=== PATIENT | male | born 1965 | race Caucasian/White ===

== ENCOUNTER 2017-03-05 13:28 | Emergency (ER) | payer MEDICAID ==
[2017-03-05 13:38] VITALS: BP 160/100
--- NOTE | 2017-03-05 13:58 | ED Physician Documentation ---
PD HPI HEENT - Stated complaint Stated Complaint: MOUTH PX - Chief complaint Chief Complaint: Heent - History obtained from History obtained from: Patient - History of Present Illness Timing - onset: Other (Worsening pain from a left maxillary tooth with facial swelling for the last few days, Aleve helps somewhat. No fevers. He also needs a refill on his blood pressure medications. He has an appointment with a dentist in about a week and a half.) Review of Systems Constitutional: denies: Fever, Chills Nose: denies: Rhinorrhea / runny nose, Congestion Cardiac: denies: Chest pain / pressure, Palpitations Respiratory: denies: Dyspnea, Cough GI: denies: Abdominal Pain, Nausea, Vomiting PD PAST MEDICAL HISTORY - Past Medical History Cardiovascular: Hypertension - Past Surgical History Past Surgical History: No - Present Medications Home Medications: Ambulatory Orders Medication Instructions Recorded Confirmed hydroCHLOROthiazide 25 mg PO DAILY #30 tablet 11/15/15 03/05/17 [Hydrochlorothiazide] Atenolol 25 mg PO DAILY #30 tablet 11/20/15 03/05/17 Atenolol 25 mg PO DAILY #30 tablet 03/05/17 Clindamycin [Cleocin] 300 mg PO Q6H 10 Days capsule 03/05/17 HYDROcod/ACETAM 5/325 [[place] 5/325] 1 - 2 ea PO Q6H PRN #15 tablet 03/05/17 hydroCHLOROthiazide 25 mg PO DAILY #30 tablet 03/05/17 [Hydrochlorothiazide] - Allergies Allergies/Adverse Reactions: Allergies Allergy/AdvReac Type Severity Reaction Status Date / Time No Known Drug Allergies Allergy Verified 03/05/17 13:38 - Social History Does the pt smoke?: Yes Smoking Status: Current every day smoker Does the pt drink ETOH?: Yes Does the pt have substance abuse?: No - Immunizations Immunizations are current?: Yes PD ED PE NORMAL - Vitals Vital signs reviewed: Yes - General General: Alert and oriented X 3, No acute distress - HEENT HEENT: Other (There is a large cavity in the left maxillary K line, there is no gingival abscess or trismus but he does have modest facial swelling overlying that area. No sublingual edema.) - Neck Neck: Supple, no meningeal sign, No bony TTP - Neuro Neuro: Alert and oriented X 3, nurse transplant 2-12 intact, No motor deficit, No sensory deficit, Normal speech Eye Opening: Spontaneous Motor: Obeys Commands Verbal: Oriented GCS Score: 15 - Psych Psych: Normal mood, Normal affect Results - Vitals Vitals: Vital Signs - 24 hr 03/05/17 13:35 Temperature 36.0 C L Heart Rate 97 Respiratory 18 Rate Blood Pressure 160/100 H O2 Saturation 99 Oxygen O2 Source Room air PD MEDICAL DECISION MAKING - ED course ED course: The patient was counseled as to the diagnosis and need for follow-up. I counseled the patient with regard to signs and symptoms that would necessitate an urgent reevaluation in the emergency department. They understand they are welcome to return at any time if worse or if not improving as expected. This document was made in part using voice recognition software. While efforts are made to proofread this documents, sound alike and grammatical errors may occur. Departure - Departure Disposition: 01 Home, Self Care Clinical Impression: Dental abscess Hypertension Qualifiers: Hypertension type: essential hypertension Qualified Code(s): I10 - Essential ( primary) hypertension Condition: Good Record reviewed to determine appropriate education?: Yes Instructions: ED Abscess Dental Prescriptions: Atenolol 25 mg PO DAILY #30 tablet Clindamycin [Cleocin] 300 mg PO Q6H 10 Days capsule hydroCHLOROthiazide [Hydrochlorothiazide] 25 mg PO DAILY #30 tablet HYDROcod/ACETAM 5/325 [[place] 5/325] 1 - 2 ea PO Q6H PRN #15 tablet PRN Reason: Pain Comments: Call your doctor to arrange a follow-up appointment, make the next available appointment. In the interim, return anytime if worse or if new symptoms develop. Do not drink or drive while taking narcotic pain medication. Note that many narcotic pain relievers also contain Tylenol/acetaminophen. Please ensure that your total dose of acetaminophen from all sources does not exceed 3 g (3000 mg) per day. You may get constipated while on this medication. Take a stool softener such as Colace twice a day while you are on it. Also add an [id number] laxative such as senna or MiraLAX on any day that you do not have a bowel movement. If you received a narcotic pain medication or sedative while in the emergency department, do not drive for the next 24 hours. Your blood pressure was elevated today on check into the emergency department. This does not mean that you have hypertension, it is a common phenomenon to come to the emergency department and have elevated blood pressure. I recommend that you see your primary care physician within the week to have it rechecked when you are feeling better.
== END 2017-03-05 14:02 | disposition home or self-care (01) ==
LOC: ED 13:28
DX: K04.7 Periapical abscess without sinus (principal); I10 Essential (primary) hypertension; F17.200 Nicotine dependence, unspecified, uncomplicated
CPT/HCPCS: 99283

== ENCOUNTER 2017-07-31 04:32 | Emergency (ER) | payer MEDICAID, OTHER ==
[2017-07-31] MEDS ORDERED: KETOROLAC 60 MG/2 ML VIAL IM STA (04:45)
[2017-07-31] MEDS ORDERED: BACITRACIN OINT TOP STA (04:45)
[2017-07-31] MEDS ORDERED: oxyCODONE/ACET 5/325 Prepack 4 PO STA (04:57)
--- NOTE | 2017-07-31 05:00 | ED Physician Documentation ---
PD HPI SKIN - Stated complaint Stated Complaint: FOREARM BURN - Chief complaint Chief Complaint: Burn - History obtained from History obtained from: Patient - History of Present Illness Timing - onset: Today Timing - details: Abrupt onset Location: RUE Quality / character: Painful, Burning, Discolored Contributing factors: Unknown (grease) Similar symptoms before: Has not had sx before Recently seen: Not recently seen - Additional information Additional information: patient is a 52 year old male presenting to the emergency department for a burn of his right upper extremity. Patient was at work when he was cleaning the deep fryer and it spilled onto his right forearm. patient cleaned the grease off before coming to the emergency department. patient denies any other burn locations. Review of Systems Ten Systems: 10 systems reviewed and negative Skin: reports: Lesions Musculoskeletal: reports: Extremity pain, Extremity swelling PD PAST MEDICAL HISTORY - Past Medical History Past Medical History: Yes Cardiovascular: Hypertension - Past Surgical History Past Surgical History: No - Present Medications Home Medications: Ambulatory Orders Medication Instructions Recorded Confirmed hydroCHLOROthiazide 25 mg PO DAILY #30 tablet 03/05/17 [Hydrochlorothiazide] Atenolol 1 tab PO DAILY 07/31/17 07/31/17 Oxycodone HCl/Acetaminophen 1 - 2 each PO Q6H PRN #14 tablet 07/31/17 [Percocet 5-325 mg Tablet] - Allergies Allergies/Adverse Reactions: Allergies Allergy/AdvReac Type Severity Reaction Status Date / Time No Known Drug Allergies Allergy Verified 07/31/17 04:40 - Social History Does the pt smoke?: Yes Smoking Status: Current every day smoker Does the pt drink ETOH?: Yes Does the pt have substance abuse?: No - Immunizations Immunizations are current?: Yes - POLST Patient has POLST: No PD ED PE NORMAL - Vitals Vital signs reviewed: Yes - General General: Alert and oriented X 3 - HEENT HEENT: Atraumatic - Cardiac Cardiac: RRR - Respiratory Respiratory: No respiratory distress - Abdomen Abdomen: Non distended - Neuro Neuro: Alert and oriented X 3 PD ED PE EXPANDED - General General: Alert, In Pain - Derm Derm: Burn(s) (partial thickness burn on patient's right forearm, approximately 3-4% body surface area, non circumfrential) - Extremities KHRIS UE/Hands Visual: 1 - tenderness (partial thickness burn) Results - Vitals Vitals: Vital Signs - 24 hr 07/31/17 04:35 Temperature 36.5 C Heart Rate 99 Respiratory 20 Rate Blood Pressure 172/105 H O2 Saturation 100 Oxygen O2 Source Room air PD MEDICAL DECISION MAKING - ED course Complexity details: reviewed old records, re-evaluated patient, considered differential, d/w patient, d/w product support consultant ED course: Patient was seen and examined at bedside. patient stated that he was driving and did not want any medication that he could not drive on. Patient was treated with toradol and wound was cleaned and debrided. Bacitracin was placed over the wound and the wound was dressed with xeroform. Patient was up to date with his tetanus. Case was discussed with burn center, and follow up arrangements were made. Patient was given detailed discharge and follow up instructions. Patient was stable for discharge with outpatient follow up. Departure - Departure Disposition: Home, Self Care Clinical Impression: Burn of upper extremity Condition: Good Instructions: ED Burn D 2nd Follow-Up: [facility], burn center [Other] Prescriptions: Oxycodone HCl/Acetaminophen [Percocet 5-325 mg Tablet] 1 - 2 each PO Q6H PRN # 14 tablet PRN Reason: pain Comments: You will need to keep the wound clean. You can change the dressing daily to two times a day. You can take ibuprofen 600mg for pain and the percocet for breakthrough pain. The burn center at [facility] should be calling you tomorrow to set up a follow up appointment. If you don't hear from them, you should call at [phone] to schedule a follow up appointment. You should return to the emergency department for severe swelling, loss of feeling in your hand, loss of pulses, infection, new worsening or uncontrollable symptoms.
[2017-07-31 05:21] VITALS: BP 165/115
== END 2017-07-31 05:18 | disposition home or self-care (01) ==
LOC: ED 04:32
DX: T22.011A Burn of unspecified degree of right forearm, initial encounter (principal); T31.0 Burns involving less than 10% of body surface; X10.2XXA Contact with fats and cooking oils, initial encounter; Y99.0 Civilian activity done for income or pay; I10 Essential (primary) hypertension; F17.200 Nicotine dependence, unspecified, uncomplicated
CPT/HCPCS: 1040M; 99282; 99283; A9270

== ENCOUNTER 2017-08-05 11:16 | Emergency (ER) | payer MEDICAID, OTHER ==
[2017-08-05] MEDS ORDERED: BACITRACIN OINT TOP STA (11:46)
[2017-08-05] MEDS ORDERED: ACETAMINOPHEN 325 MG TABLET PO STA (11:46)
[2017-08-05] MEDS ORDERED: IBUPROFEN 400 MG TABLET PO STA (11:46)
[2017-08-05 12:33] VITALS: BP 154/116
--- NOTE | 2017-08-05 12:44 | ED Physician Documentation ---
History of Present Illness - Stated complaint Stated Complaint: DRESSING CHANGE - Chief complaint Chief Complaint: Burn - Additonal information Additional information: hx from pt 52 male hiot grease burn several days ago to ER for dressing change tdap UTD no fever Review of Systems Constitutional: denies: Fever Skin: reports: Other (burn) PD PAST MEDICAL HISTORY - Past Medical History Past Medical History: Yes Cardiovascular: Hypertension - Past Surgical History Past Surgical History: No - Present Medications Home Medications: Ambulatory Orders Medication Instructions Recorded Confirmed hydroCHLOROthiazide 25 mg PO DAILY #30 tablet 03/05/17 [Hydrochlorothiazide] Atenolol 1 tab PO DAILY 07/31/17 07/31/17 Oxycodone HCl/Acetaminophen 1 - 2 each PO Q6H PRN #14 tablet 07/31/17 [Percocet 5-325 mg Tablet] - Allergies Allergies/Adverse Reactions: Allergies Allergy/AdvReac Type Severity Reaction Status Date / Time No Known Drug Allergies Allergy Verified 07/31/17 04:40 - Social History Does the pt smoke?: Yes Smoking Status: Current every day smoker Does the pt drink ETOH?: Yes Does the pt have substance abuse?: No - Immunizations Immunizations are current?: Yes - POLST Patient has POLST: No PD ED PE NORMAL - Vitals Vital signs reviewed: Yes - Derm Derm: Other (R FA approx 6 X 4 inch non circumferential 2nd degree burn, no sign of developing infection, MSV intact) Results - Vitals Vitals: Vital Signs - 24 hr 08/05/17 08/05/17 11:17 12:33 Temperature 36.8 C 36.4 C L Heart Rate 99 74 Respiratory 16 19 Rate Blood Pressure 162/114 H 154/116 H O2 Saturation 100 98 Oxygen O2 Source Room air PD MEDICAL DECISION MAKING - ED course ED course: dressing changed by ELECTRICAL SYSTEM SPECIALIST Departure - Departure Disposition: 01 Home, Self Care Clinical Impression: Burn of upper extremity Qualifiers: Encounter type: subsequent encounter Upper extremity location: forearm Laterality: right Burn degree: partial thickness (2nd degree) Qualified Code(s) : T22.211D - Burn of second degree of right forearm, subsequent encounter Instructions: ED Burn Wound Check No Infec Comments: The burn is healing well Continue to gently wash and change the dressing daily Apply plenty of bacitracin before you apply a non stick dressing to prevent sticking Motrin and tylenol as needed for pain Return if worse Please get your blood pressure rechecked when you are feeling better
== END 2017-08-05 12:49 | disposition home or self-care (01) ==
LOC: ED 11:16
DX: T22.211D Burn of second degree of right forearm, subsequent encounter (principal); X10.2XXD Contact with fats and cooking oils, subsequent encounter; Z48.00 Encounter for change or removal of nonsurgical wound dressing; I10 Essential (primary) hypertension; F17.200 Nicotine dependence, unspecified, uncomplicated
CPT/HCPCS: 99281; 99282; A9270

== ENCOUNTER 2018-09-24 12:28 | Emergency (ER) | payer SELFPAY ==
[2018-09-24 12:34] VITALS: BP 176/93
--- NOTE | 2018-09-24 13:56 | ED Physician Documentation ---
History of Present Illness - Stated complaint Stated Complaint: LT SIDE FACIAL SWELLING - Chief complaint Chief Complaint: Heent - History obtained from History obtained from: Patient - Additonal information Additional information: Patient is a 53-year-old male with history of hypertension, although noncompliant with medication, and poor dental hygiene at baseline presenting with concern for dental abscess. Patient reports that his last dentist visit was about 1 year ago. Patient has had dental abscesses in the past. Patient reports he has had multiple teeth missing and had no break to the tooth several days ago. Patient now has worsening pain, swelling, and facial swelling. No overlying skin changes, fever, chills, or drainage. Patient denies other improving or worsening factors. Review of Systems Constitutional: denies: Fever, Chills Eyes: denies: Loss of vision Ears: denies: Loss of hearing, Ear pain, Drainage/discharge Nose: reports: Sinus pressure / pain. denies: Rhinorrhea / runny nose, Congestion Throat: reports: Dental pain / toothache PD PAST MEDICAL HISTORY - Past Medical History Cardiovascular: Hypertension - Past Surgical History Past Surgical History: No - Present Medications Home Medications: Ambulatory Orders Medication Instructions Recorded Confirmed hydroCHLOROthiazide 25 mg PO DAILY #30 tablet 03/05/17 [Hydrochlorothiazide] Atenolol 1 tab PO DAILY 07/31/17 07/31/17 Oxycodone HCl/Acetaminophen 1 - 2 each PO Q6H PRN #14 tablet 07/31/17 [Percocet 5-325 mg Tablet] Clindamycin HCl [Clindamycin 150MG 450 mg PO TID 10 Days capsule 09/24/18 CAP] Hydrocodone/Acetaminophen 1 - 2 each PO Q6H PRN #10 tablet 09/24/18 [Hydrocodon-Acetaminophen 5-325] - Allergies Allergies/Adverse Reactions: Allergies Allergy/AdvReac Type Severity Reaction Status Date / Time No Known Drug Allergies Allergy Verified 09/24/18 12:34 - Social History Does the pt smoke?: Yes Smoking Status: Current every day smoker Does the pt drink ETOH?: Yes Does the pt have substance abuse?: No - Immunizations Immunizations are current?: Yes - POLST Patient has POLST: No PD ED PE NORMAL - Vitals Vital signs reviewed: Yes - General General: Alert and oriented X 3, No acute distress, Well developed/nourished - HEENT HEENT: Atraumatic, Moist mucous membranes, Other (Pronounced facial swelling over left maxilla extending towards left side nose without overlying erythema). No: Dentition benign (Patient has poor dental hygiene throughout with multiple missing teeth, fractured teeth and dental caries with large amount of, Swelling, erythema, and pain to the left molar region. Given pain, difficult to assess further. No trismus.) - Respiratory Respiratory: No respiratory distress - Derm Derm: Normal color, Warm and dry, No rash - Extremities Extremities: No deformity, No tenderness to palpate - Neuro Neuro: Alert and oriented X 3, No motor deficit, No sensory deficit - Psych Psych: Normal mood, Normal affect Results - Vitals Vitals: Vital Signs - 24 hr 09/24/18 12:29 Temperature 36.7 C Heart Rate 95 Respiratory 16 Rate Blood Pressure 176/93 H O2 Saturation 99 Oxygen O2 Source Room air PD MEDICAL DECISION MAKING - ED course Complexity details: considered differential, d/w patient ED course: Have significant concern for dental abscess, as well as other complications including facial abscess that could be extending into other areas including orbit and sinus, as well as possible extension intracranially. Difficult to further assess intraorally given patient's pain. Provided pain and antibiotic medications in the ED. However, patient declines further evaluation including IV placement, labs, imaging, etc. Had extensive discussion with him regarding concern of him leaving without further work-up and the possibility of missing more complicated processes and the risks of such. Patient voiced understanding and is capable of making this decision. Patient signed AMA paperwork. Did provide prescriptions for home of antibiotics and pain medications, as well as other supportive cares, return precautions, and recommendation of dentistry follow-up. Departure - Departure Disposition: 01 Home, Self Care Clinical Impression: Dental abscess Condition: Fair Instructions: ED Abscess Dental Follow-Up: your,dentist [Other] - Within 3 Days Prescriptions: Clindamycin HCl [Clindamycin 150MG CAP] 450 mg PO TID 10 Days capsule Hydrocodone/Acetaminophen [Hydrocodon-Acetaminophen 5-325] 1 - 2 each PO Q6H PRN #10 tablet PRN Reason: pain Comments: Please keep mouth clean using brushing, flossing, and mouthwash.Please take antibiotics to treat infection.May use [place] as prescribed for pain control but do not combine with Tylenol, alcohol, other recreational drugs, or driving. If taking [place] regularly, recommend use of stool softener or laxative. If not taking [place], may use ibuprofen/Tylenol. Please contact your dentist immediately for follow-up. Please recognize that by skipping further work-up today we could be missing more Significant infections that could cause complications including spread to areas such as her eye or brain, as well as blindness, , etc. Forms: Activity restrictions
[2018-09-24] MEDS ORDERED: HYDROcod/ACETAM 5/325 MG TABLET PO STA (14:01)
[2018-09-24] MEDS ORDERED: CLINDAMYCIN 150 MG CAPSULE PO STA (14:02)
--- NOTE | 2018-09-24 14:57 | ED Physician Documentation ---
ED Addendum - Addendum Addendum: 09/24/18 14:57 changed to amox 500mg PO TID x 10days secondary to cost.
== END 2018-09-24 14:20 | disposition left against medical advice (07) ==
LOC: ED 12:28
DX: K04.7 Periapical abscess without sinus (principal); K02.9 Dental caries, unspecified; I10 Essential (primary) hypertension; Z91.14 Patient's other noncompliance with medication regimen; F17.200 Nicotine dependence, unspecified, uncomplicated; Z53.20 Procedure and treatment not carried out because of patient's decision for unspecified reasons
CPT/HCPCS: 99282; 99283; A9270

== ENCOUNTER 2022-12-26 09:30 | Outpatient (CLI) | payer MEDICAID ==
[2022-12-26 12:27] LABS: BASOPHILS # (AUTO) 0.1 10^3/uL (0.0-0.1); BASOPHILS % (AUTO) 0.8 %; EOSINOPHILS % (AUTO) 0.4 %; HCT - HEMATOCRIT 44.1 % (42.0-52.0); HGB - HEMOGLOBIN 15.3 g/dL (14.0-18.0); LYMPHOCYTES # (AUTO) 1.2 10^3/uL (1.5-3.5); LYMPHOCYTES % (AUTO) 12.8 %; MEAN CORPUSCULAR HEMOGLOBIN 34.7 pg (27.0-31.0); MEAN CORPUSCULAR HGB CONC 34.7 g/dL (32.0-36.0); MONOCYTES # (AUTO) 0.8 10^3/uL (0.0-1.0); NEUTROPHILS # (AUTO) 6.9 10^3/uL (1.5-6.6); NEUTROPHILS % (AUTO) 76.7 %; PLT - PLATELET COUNT 262 10^3/uL (130-450); RED BLOOD COUNT 4.41 10^6/uL (4.70-6.10)
[2022-12-26 13:12] LABS: ALBUMIN 4.5 g/dL (3.2-5.5); ALBUMIN/GLOBULIN RATIO 1.3 (1.0-2.2); BILIRUBIN,TOTAL 0.6 mg/dL (0.2-1.0); CALCIUM 10.2 mg/dL (8.5-10.3); CREATININE 0.8 mg/dL (0.6-1.3); POTASSIUM 3.8 mmol/L (3.5-4.5); THYROID STIMULATING HORMONE 1.22 uIU/mL (0.34-5.60); TOTAL PROTEIN 7.9 g/dL (6.4-8.9)
[2022-12-26 13:46] LABS: ESTIMATED AVERAGE GLUCOSE 82 mg/dL (70-100); HEMOGLOBIN A1c% 4.5 % (4.27-6.07)
[2022-12-27 08:10] LABS: HCV AB Non Reactive (Non Reactive)
== END 2022-12-26 09:45 | disposition home or self-care (01) ==
LOC: LAB.N 09:30
PROVIDERS: ATTEND Registered Nurse
DX: R53.83 Other fatigue (principal); R25.1 Tremor, unspecified; R06.09 Other forms of dyspnea; R63.4 Abnormal weight loss
CPT/HCPCS: 36415; 80053; 82306; 83036; 84153; 84443; 85025; 86803